=== PATIENT | male | born 2000 | race Two or more races ===

== ENCOUNTER → 2024-12-16 10:43 | Outpatient (BNVA) | payer OTHER, SELFPAY | PROVIDERS: Visit Provider Emergency Medicine | DX: S43.001A Unspecified subluxation of right shoulder joint, initial encounter (principal); X50.3XXA Overexertion from repetitive movements, initial encounter | CPT/HCPCS: 73030; 99204 ==

== ENCOUNTER 2025-01-13 13:46 | Outpatient (REF) | payer OTHER, SELFPAY ==
--- NOTE | ~2025-01-13 | MR_ITS ---
EXAMINATION: MR SHOULDER WITHOUT CONTRAST, RIGHT CLINICAL INFORMATION: Shoulder subluxation . Status post dislocation 12/16. Patient reports history of surgery. COMPARISON: X-ray 12/16/2024 TECHNIQUE: MRI of the shoulder without contrast was performed on a high-field scanner. FINDINGS: ROTATOR CUFF: Supraspinatus: Intact. Infraspinatus:Mild tendinosis. Mild bursal surface ill-definition/irregularity in the distal anterior fibers suggesting fraying/low-grade tear. No transverse tendon tear or retraction is seen. Teres minor: Intact. Subscapularis tendon: Intact No muscle atrophy or fatty infiltration. BICEPS: Intact CORACOACROMIAL ARCH: The undersurface of the acromion is mildly curved with no subacromial spur. No significant acromioclavicular arthritis. LABRUM/CAPSULE: There are postsurgical changes in the glenoid. No displaced labral tear is seen in this nonarthrogram study. GLENOHUMERAL JOINT/MARROW: Mild cortical undulation/depression of the posterior humeral head, with minimal edema. Findings suggest a Hill-Sachs injury, correlating with the clinical history. No bony Bankart injury is identified. No significant joint effusion. No axillary lymphadenopathy.. MR/MR shoulder RT wo con IMPRESSION: * Mild supraspinatus tendinosis. Mild bursal surface fraying/low-grade tear in the anterior fibers. No transverse tendon tear or retraction. * Postsurgical changes in the glenoid. No displaced labral tear is identified. * Bony findings suggestive of a Hill-Sachs injury, of indeterminate age. * Additional findings and details as above. Electronically signed by: José Manuel Villa MD 01/14/2025 08:30 AM EDT
== END 2025-01-13 13:47 | disposition home or self-care (01) ==
LOC: HO.MRI 13:46
PROVIDERS: Visit Provider Internal Medicine
DX: S43.001A Unspecified subluxation of right shoulder joint, initial encounter (principal)
CPT/HCPCS: 73221

== ENCOUNTER → 2025-01-13 13:51 | Outpatient (BNV) | payer OTHER, SELFPAY | PROVIDERS: Visit Provider Radiology Diagnostic Ultrasound | DX: M67.813 Other specified disorders of tendon, right shoulder (principal) | CPT/HCPCS: 73221 ==

== ENCOUNTER → 2025-01-20 10:59 | Outpatient (BNVA) | payer OTHER, SELFPAY | PROVIDERS: Visit Provider Emergency Medicine | DX: M75.101 Unspecified rotator cuff tear or rupture of right shoulder, not specified as traumatic (principal) | CPT/HCPCS: 99214 ==

== ENCOUNTER 2025-01-31 10:12 | Outpatient (RCR) | payer OTHER, SELFPAY ==
--- NOTE | 2024-12-19 10:04 | MHC.PT.EP ---
[facility] [place] Office [place] [facility] [place] [facility] [address] [phone] F: [phone] F: [phone] F: [phone] F: [phone] Physical Therapy Plan of Care Date of Evaluation: 12/17/24 Date of Surgery: 2015 Diagnosis: Right shoulder subluxation Assessment: Pt is a pleasant and motivated 24yo M who presents to PT after his shoulder popped out at work on 12/16/24. He reports his shoulder popped back into place. He went to the [facility] that day and had xrays. He presents to PT with current impairments in pain, decreased ROM, decreased strength, soft tissue restrictions, and impaired posture. He is limited functionally by reaching up, reaching out to the side, reaching behind back, lifting, and overhead ADLs, He is an excellent candidate for skilled PT in order to address current impairments to facilitate return to PLOF. He is recommended to be seen 2x/week for 4 weeks and will be reassessed Frequency and Duration: The patient will be seen 2x/week for 4 weeks Short Term Goals: Pt will be I with HEP to promote self management of symptoms Pt will improve R shoulder flexion to 100 deg Numerical Control Programmer Goals: Pt will achieve full flexion ROM in order to perform overhead ADLs without compensation Pt will achieve full strength all planes of R shoulder to assist with lifting and reaching Pt will demonstrate improvements in function as evidenced by statistically significant improvement in SPADI outcome measure Treatment Plan: Modalities to reduce pain, spasms and effusion. Manual therapy to restore motion and function. Therapeutic exercise to improve strength and flexibility. Neuromuscular re-education for posture and balance. Therapeutic activities to return to functional activities of daily living. Electronically signed by: Kandy Dias, PT, DPT Please sign and return to therapist. Thank you for your referral.
--- NOTE | 2025-03-07 16:06 | MHC.PT.DC ---
[facility] [place] Office [place] Office [place] Office [address] [phone] F: [phone] F: [phone] F: [phone] F: [phone] Physical Therapy Discharge Report Diagnosis: Right shoulder subluxation Date of Surgery: 2015 Date of Evaluation: 12/17/24 Date of Discharge: 03/07/25 Treatments to Date: 6 Cancellations to Date: 4 No Shows to Date: 4 Discharge Status: Visit Non-compliance Discharge Summary: Pt was seen for skilled PT from 12/17/24-01/31/25. He has had multiple cancellations and no shows including a no show for his last scheduled appointment. He is being D/C from skilled PT per [facility] attendance policy and visit non compliance. Pt current level of function unknown at this time Electronically signed by: Kandy Parson, PT, DPT Please sign and return to therapist. Thank you for your referral.
== END 2025-03-07 16:05 | disposition home or self-care (01) ==
LOC: HO.PT 10:12
PROVIDERS: Visit Provider Emergency Medicine
DX: S43.001D Unspecified subluxation of right shoulder joint, subsequent encounter (principal); M25.311 Other instability, right shoulder
CPT/HCPCS: 97110; 97162; 97530